=== PATIENT | male | born 1940 | race Caucasian/White ===

== ENCOUNTER 2021-03-11 14:02 | Inpatient (IN) | payer MEDICARE, SELFPAY ==
[~2021-03-11] VITALS: Ht 190.5 cm; Wt 83.0 kg
[~2021-03-11 14:02] MED LIST: [UNRECOGNIZED DRUG - REMARK]
[2021-03-11 14:12] VITALS: BP 139/90
--- NOTE | 2021-03-11 14:12 | NUR ---
PATIENT BIBA TO BED 6 AT THIS TIME.
--- NOTE | 2021-03-11 14:12 | NUR ---
81 Y/O M BIBA FROM HOME, C/O ABD PAIN AND RIGIDITY 1 HOUR PRIOR TO ARRIVAL. PT STATES HE IS C/O NAUSEA AND SOB WITH ABD DISTENTION; SKIN IS PALE/DIAPHORETIC/COOL; AAOX4 WITH EVEN AND STEADY GAIT; LUNGS CLEAR BL, SHALLOW BREATHS WITH TACHYPNEA; HR EVEN AND TACHYPNEA; PT DENIES ANY FEVER OR COUGH AT THIS TIME; PATIENT STATES PAIN OF 10/10 AT THIS TIME; PATIENT POSITIONED FOR COMFORT; HOB ELEVATED, PT IS RESTLESS AND REQUESTS TO STAND; BEDRAILS UP X2; BED DOWN. ER MD MADE AWARE OF PT STATUS. PMH: GERD MED: PRASANTH MCGARRY
[2021-03-11] MEDS ORDERED: MORPHINE SULFATE 4 MG/ML SYR IVP ONE (14:15)
[2021-03-11] MEDS ORDERED: NACL 0.9% 500 ML IV ONE (14:15)
[2021-03-11] MEDS ORDERED: ONDANSETRON 4 MG/2 ML VIAL IVP ONE (14:15)
[2021-03-11] MEDS ORDERED: HYDROmorphone PFS 2 MG/ML SYR IVP ONE (15:05)
[2021-03-11] MEDS ORDERED: HYDROmorphone 1 MG/ML AMP ONE (15:09)
[2021-03-11] MEDS ORDERED: VANCOMYCIN 1,000 MG in DEXTROSE 5% 250 ML IV ONE (15:15)
[2021-03-11] MEDS ORDERED: PIPERACILLIN/TAZOBACTAM 4.5 GM in DEXTROSE 5% 100 ML IV ONE (15:15)
[2021-03-11 15:17] LABS: BASOPHILS % (AUTO) 0.3 % (0.0-2.0); HEMATOCRIT 47.4 % (36-52); HEMOGLOBIN 15.1 g/dL (12.0-18.0); LYMPHOCYTES # (AUTO) 0.7 K/uL (2.0-11.5); LYMPHOCYTES % (AUTO) 7.8 % (20.5-51.1); MEAN CORPUSCULAR HEMOGLOBIN 28 pg (27-31); MEAN CORPUSCULAR HGB CONC 32 g/dL (33-37); MEAN CORPUSCULAR VOLUME 87.3 fL (80-94); MONOCYTES # (AUTO) 0.3 K/uL (0.8-1.0); MONOCYTES % (AUTO) 3.2 % (1.7-9.3); NEUTROPHILS % (AUTO) 88.7 % (42.2-75.2); PLATELET COUNT (AUTO) 192 K/uL (140-450); RED BLOOD CELL COUNT(AUTO) 5.42 MIL/uL (4.20-6.10); RED CELL DISTRIBUTION WIDTH 20.4 % (11.6-13.7)
[2021-03-11] MEDS ORDERED: INTUBATION KIT MC ONE (15:23)
[2021-03-11 15:42] LABS: ALBUMIN 4.3 g/dL (3.4-5.0); ANION GAP 21.9 (8-16); ASPARTATE AMINOTRANSFERASE 18 U/L (15-37); CARBON DIOXIDE 24.4 mmol/L (21-32); CHLORIDE 98 mmol/L (98-107); CREATININE 1.9 mg/dL (0.6-1.3); GLUCOSE 301 mg/dL (74-106); LIPASE 879 U/L (73-393); POTASSIUM 3.3 mmol/L (3.5-5.1); SODIUM SERUM 141 mmol/L (136-145); TOTAL BILIRUBIN 0.6 mg/dL (0.0-1.0); UREA NITROGEN, BLOOD 13 mg/dL (7-18)
[2021-03-11] MEDS ORDERED: KETAMINE 500 MG/5 ML VIAL ONE (15:57)
--- NOTE | 2021-03-11 15:57 | NUR ---
PULLED OUT KETAMINE INJ 500MG/5ML PER DR. CARDENAS TO HELP SEDATE PT AFTER CODE BLUE RESULTING IN INTUBATION OF PT. 100MG/1ML PULLLED AND GIVEN VIA IO BY DR. CARDENAS CODE BLUE OCCURRED IN CT AND KETAMINE GIVEN IN CT ROOM BY DR. CARDENAS
[2021-03-11] MEDS ORDERED: KETAMINE 500 MG/5 ML VIAL IVP ONE (16:00)
[2021-03-11] MEDS ORDERED: VANCOMYCIN 1,000 MG VIAL ONE (16:10)
[2021-03-11] MEDS ORDERED: PIPERACILLIN/TAZOBACTAM 2.25 GM VIAL IV ONE (16:10)
[2021-03-11] MEDS ORDERED: fentaNYL citrate 1 MG in NACL 0.9% 80 ML IV STA (16:16)
[2021-03-11] MEDS ORDERED: PROPOFOL 1000 MG/100 ML PREMIX 100 ML IV ONE ×2 (16:17→16:20)
[2021-03-11] MEDS ORDERED: SUCCINYLCHOLINE CHLORIDE 200 MG/10 ML VIAL IVP ONE (16:20)
[2021-03-11] MEDS ORDERED: ETOMIDATE 20 MG/10 ML VIAL IVP ONE (16:20)
--- NOTE | 2021-03-11 16:28 | NUR ---
CALLED TO CODE BLUE IN CT, BAGGED PT UNTIL SECURED AN AIRWAY WITH 7.5 ETT AT 23CM. PLACED PT ON A VENT, SETTINGS AC 16 500 +5 100%. PROCEEDED WITH CT SCAN AND THEN RETURNED PT TO ED WITH NO ISSUES.
[2021-03-11] MEDS ORDERED: fentaNYL citrate 1 MG in NACL 0.9% 80 ML IV PRN ×2 (17:13→17:40)
--- NOTE | 2021-03-11 17:21 | NUR ---
CONTAINED CONSENT FOR CENTRAL LINE PLACEMENT, AND SURGICAL CONSENT
[2021-03-11] MEDS ORDERED: NOREPINEPHRINE 4 MG/4 ML VIAL IV ONE ×3 (17:25→22:21)
[2021-03-11] MEDS ORDERED: NOREPINEPHRINE 4 MG in DEXTROSE 5% 250 ML IV ONE (17:25)
--- NOTE | 2021-03-11 17:25 | NUR ---
DR. RODRIGUEZ AT BEDSIDE FOR CENTRAL LINE PLACEMENT,
[2021-03-11] MEDS ORDERED: ALBUMIN HUMAN 5% IV ONE (17:27)
[2021-03-11] MEDS ORDERED: SODIUM BICARBONATE 8.4% PFS 50 MEQ/50 ML SYR IVP ONE (17:27)
[2021-03-11] MEDS ORDERED: PHENYLEPHRINE 10 MG/ML VIAL ONE ×3 (17:27→22:13)
--- NOTE | 2021-03-11 17:30 | NUR ---
DR FRANK Arora AT PT BEDSIDE PLACING CENTRAL LINE, CONSENT SIGNED PER .
[2021-03-11] MEDS ORDERED: PANTOPRAZOLE 40 MG INJ VIAL IVP SCH (17:40)
[2021-03-11] MEDS ORDERED: NOREPINEPHRINE 4 MG in DEXTROSE 5% 250 ML IV PRN (17:40)
--- NOTE | 2021-03-11 17:44 | NUR ---
DR. MONTEJO AT BEDSIDE FOR CRITAL CARE CONSULT
--- NOTE | 2021-03-11 18:30 | NUR ---
PT OFF UNIT, WAS TAKEN BY ANESTHESIA, RN AND SURGEON. MANUAL BP WAS TAKEN 2 RN VERIFICATION 74/40 AT THIS TIME.
[2021-03-11] MEDS ORDERED: BUPIVACAINE-MPF 0.25% 30 ML VIAL INJ ONE (18:33)
[2021-03-11] MEDS ORDERED: LIDOCAINE/EPI MPF 1%1:200000 30 ML VIAL INJ ONE (18:34)
[2021-03-11] MEDS ORDERED: PIPERACILLIN/TAZOBACTAM 3.375 GM VIAL IV ONE (19:17)
[2021-03-11 22:00] VITALS: BP 144/91
--- NOTE | 2021-03-11 22:00 | NUR ---
PATIENT TRANSFERRED FROM OR WITH ANESTHESIOLOGIST AND RT AT BEDSIDE. OGT NOTED. ETT TO VENT. FIO2 100%. RESPIRATIONS EVEN, UNLABORED. SINUS RHYTHM. PATIENT HYPOTENSIVE UPON ARRIVAL. LEFT ARTERIAL LINE IN PLACE. RIGHT FEMORAL ACCESS NOTED, INFUSING LEVOPHED, NATE AND EPINEPHRINE. ALL PRESSORS AT MAXIMUM DOSE. BILATERAL UPPER EXTREMITY EDEMA NOTED. ABDOMINAL DRESSING CLEAN/DRY AND INTACT. 3 REHANA DRAINS NOTED, BLOODY CONTENT NOTED. WONG CATHETER IN PLACE WITH YELLOW URINE DRAINING TO GRAVITY.
[2021-03-11] MEDS ORDERED: MORPHINE SULFATE 4 MG/ML SYR IV PRN (22:10)
[2021-03-11] MEDS ORDERED: MORPHINE SULFATE 2 MG/ML SYR IVP PRN (22:10)
[2021-03-11] MEDS ORDERED: HYDROcodone/APAP 5/325 MG 1 TAB TAB PO PRN (22:10)
[2021-03-11] MEDS ORDERED: ONDANSETRON 4 MG/2 ML VIAL IV PRN (22:10)
[2021-03-11] MEDS ORDERED: HYDROmorphone 1 MG/ML AMP IVP PRN (22:10)
--- NOTE | 2021-03-11 22:19 | NUR ---
2200 TRANSPORTED PATIENT FROM OR AND PLACED BACK ON VENT WITH PREVIOUS SETTINGS
[2021-03-11] MEDS ORDERED: POTASSIUM CHL 20MEQ/D5-NS 1,000 ML IV SCH (22:20)
[2021-03-11] MEDS ORDERED: VANCOMYCIN PER PHARMACY MC PRN (22:35)
[2021-03-11] MEDS ORDERED: FLUCONAZOLE 100 MG/NS PREMIX 50 ML IV SCH (22:35)
[2021-03-11] MEDS ORDERED: EPINEPHrine 1 MG/ML AMP ONE (22:40)
[2021-03-11] MEDS ORDERED: EPINEPHrine 1 mg/mL 1 MG in DEXTROSE 5% 250 ML IV PRN (22:40)
--- NOTE | 2021-03-11 23:10 | NUR ---
PATIENT CODED. ROSC ACHIEVED AT 2309.
[2021-03-11 23:20] VITALS: BP 79/33
[2021-03-11] MEDS ORDERED: VASOPRESSIN 20 UNITS in NACL 0.9% 250 ML IV SCH (23:30)
--- NOTE | 2021-03-11 23:45 | NUR ---
TIME OF 8972. FAMILY AWARE.
--- NOTE | 2021-03-11 23:50 | NUR ---
INFORMED DR GUTIERREZ, PROFESSOR OF RELIGIOUS STUDIES FOR DR ALEJO WELL DR RODRIGUEZ REGARDING PATIENT'S EXPIRATION.
--- NOTE | 2021-03-11 23:53 | NUR ---
CALLED THE SUPER[employer]OR [employer]ESS[employer] TO INFORM OF PATIENT'S EXPIRATION. AWAITING CALL BACK TO RELEASE.
--- NOTE | 2021-03-11 23:56 | NUR ---
CALLED [facility] AND SPOKE TO CHRIS. CONFIRMATION NUMBER IS #[id number].
[2021-03-12] MEDS ORDERED: POTASSIUM CHLORIDE 40 MEQ, LIDOCAINE MPF 1% 25 MG in NACL 0.9% 250 ML IV PRN (00:15)
[2021-03-12] MEDS ORDERED: SODIUM PHOS / POTASSIUM PHOS 1 PKT PDR PO PRN (00:15)
[2021-03-12] MEDS ORDERED: ACETAMINOPHEN 325 MG TAB PO PRN (00:15)
[2021-03-12] MEDS ORDERED: DOCUSATE SODIUM 100 MG GELCAP PO PRN (00:15)
[2021-03-12] MEDS ORDERED: MAG SULF 2000 MG/WATER PREMIX 50 ML IV PRN (00:15)
--- NOTE | 2021-03-12 00:33 | NUR ---
SPOKE TO SUNDAR ZAMBRANO FROM [employer]ER[employer] OFFICE WITH AFFIRMATION TO RELEASE BODY.
--- NOTE | 2021-03-12 01:18 | NUR ---
[facility] CALLED AT #[phone] TO MAKE ARRANGEMENTS TO [employer] PATIENT.
--- NOTE | 2021-03-12 03:14 | NUR ---
MORTUARY ARRIVED TO TAKE PATIENT; FAMILY MADE AWARE.
[2021-03-12] MEDS ORDERED: MEROPENEM 1,000 MG in NACL 0.9% 100 ML IV SCH (05:00)
[2021-03-12] MEDS ORDERED: PIPERACILLIN/TAZOBACTAM 3.375 GM in DEXTROSE 5% 50 ML IV SCH (05:00)
[2021-03-12] MEDS ORDERED: PANTOPRAZOLE 40 MG INJ VIAL IVP SCH (09:00)
== END 2021-03-11 23:42 | DRG 853 ==
LOC: MED 14:02 → MIC 17:28
PROVIDERS: ADMIT Hospitalist; ATTEND Hospitalist
PROC: 0W9G0ZZ Drainage of Peritoneal Cavity, Open Approach (ICD-10-PCS; 2021-03-11)
PROC: 0DB80ZZ Excision of Small Intestine, Open Approach (ICD-10-PCS; 2021-03-11)
PROC: 0WPF0JZ Removal of Synthetic Substitute from Abdominal Wall, Open Approach (ICD-10-PCS; 2021-03-11)
PROC: 04HY32Z Insertion of Monitoring Device into Lower Artery, Percutaneous Approach (ICD-10-PCS; 2021-03-11)
PROC: 5A12012 Performance of Cardiac Output, Single, Manual (ICD-10-PCS; 2021-03-11)
PROC: 0BH17EZ Insertion of Endotracheal Airway into Trachea, Via Natural or Artificial Opening (ICD-10-PCS; 2021-03-11)
PROC: 5A1935Z Respiratory Ventilation, Less than 24 Consecutive Hours (ICD-10-PCS; 2021-03-11)
PROC: 3E0A3GC Introduction of Other Therapeutic Substance into Bone Marrow, Percutaneous Approach (ICD-10-PCS; 2021-03-11)
PROC: 05JY3ZZ Inspection of Upper Vein, Percutaneous Approach (ICD-10-PCS; 2021-03-11)
PROC: 05JY3ZZ Inspection of Upper Vein, Percutaneous Approach (ICD-10-PCS; 2021-03-11)
PROC: 06HY33Z Insertion of Infusion Device into Lower Vein, Percutaneous Approach (ICD-10-PCS; 2021-03-11)
PROC: B54BZZA Ultrasonography of Right Lower Extremity Veins, Guidance (ICD-10-PCS; 2021-03-11)
PROC: 0DB60ZZ Excision of Stomach, Open Approach (ICD-10-PCS; principal; 2021-03-11 18:00)
DX: A41.9 Sepsis, unspecified organism (principal); R65.21 Severe sepsis with septic shock; J96.01 Acute respiratory failure with hypoxia; K65.0 Generalized (acute) peritonitis; K63.1 Perforation of intestine (nontraumatic); N17.0 Acute kidney failure with tubular necrosis; K44.0 Diaphragmatic hernia with obstruction, without gangrene; K56.609 Unspecified intestinal obstruction, unspecified as to partial versus complete obstruction; I46.9 Cardiac arrest, cause unspecified; K31.89 Other diseases of stomach and duodenum; K21.9 Gastro-esophageal reflux disease without esophagitis; Z20.822 Contact with and (suspected) exposure to COVID-19; E87.6 Hypokalemia
CPT/HCPCS: 31500; 36415; 36680; 71045; 80053; 83605; 83690; 84484; 85025; 86886; 86900; 86901; 87040; 88304; 88307; 92950; 93005; 94002; 96361; 96365; 96368; 96375; 99291; 99292; J0171; J1170; J1450; J2001; J2270; J2370; J2405; J2543; J2704; J3010; J3370; J3490; J7030; J7060; P9041; Q0092; Q9967